=== PATIENT | female | born 1955 | race Caucasian/White ===

== ENCOUNTER 2021-07-12 02:43 | Emergency (ER) | payer OTHER ==
[~2021-07-12] VITALS: Ht 160 cm; Wt 74.4 kg
[2021-07-12] MEDS ORDERED: OMEPRAZOLE20 MG PO (03:06)
[2021-07-12] MEDS ORDERED: FLUOXETINE HCL60 MG PO (03:06)
[2021-07-12] MEDS ORDERED: IMODIUM A-D2 M2 PO (03:07)
[2021-07-12] MEDS ORDERED: SYNTHROID25 MCG PO (03:07)
== END 2021-07-12 04:20 | disposition home or self-care (01) ==
LOC: ED 02:43
DX: S01.01XA Laceration without foreign body of scalp, initial encounter (principal); Z79.899 Other long term (current) drug therapy; W10.9XXA Fall (on) (from) unspecified stairs and steps, initial encounter
CPT/HCPCS: 70450; 72125; 99284-25